=== PATIENT | female | born 1960 | race Caucasian/White ===

== ENCOUNTER 2019-07-31 19:43 | Inpatient (IN) ==
[2019-07-31] MEDS ORDERED: ONDANSETRON 4 MG/2 ML VIAL IVP ONE (20:02)
[2019-07-31] MEDS ORDERED: Sodium Chloride 0.9% 1,000 ML PRIMARY IV ONE (20:02)
[2019-07-31] MEDS ORDERED: MORPHINE SULFATE 2 MG/1 ML IVP ONE (20:02)
[2019-07-31 20:24] LABS: BASOPHILS # (AUTO) 0.04 10*3/UL; BASOPHILS % (AUTO) 0.4 % (0-1); EOSINOPHILS # (AUTO) 0.08 10*3/UL; EOSINOPHILS % (AUTO) 0.7 % (0-8); Hematocrit [HCT] 45.7 % (37.0-47.0); Hemoglobin [HGB] 16.4 g/dL (12.0-16.0); LYMPHOCYTES # (AUTO) 1.74 10*3/uL; MEAN CORPUSCULAR HGB CONC 35.9 g/dL (33-37); MEAN CORPUSCULAR VOLUME 84.2 FL (81-99); MEAN PLATELET VOLUME 8.6 FL (7.4-12.2); MONOCYTES # (AUTO) 0.77 10*3/UL (0.3-0.8); MONOCYTES % (AUTO) 7.1 % (5-15); NEUTROPHILS # (AUTO) 8.11 10*3/UL; NEUTROPHILS % (AUTO) 75.2 % (50-80); RED BLOOD COUNT 5.43 10^6/uL (4.20-5.40)
--- NOTE | 2019-07-31 20:24 | PDOC ---
General Adult HPI - General Chief Complaint: Nausea / Vomiting / Diarrhea Stated Complaint: VOMITING WITH COUGH X 1 WEEK Date Seen by Provider: 07/31/19 Time Seen by Provider: 20:00 Source: POSITIVE: Patient, Spouse Exam Limitations: POSITIVE: No limitations Nurse's Notes Reviewed & Considered: Yes - History of Present Illness Initial Comment: The patient is a 59-year-old female who presents to the emergency department with complaints of nausea, vomiting and cough. She states that she has been sick now for the past week. She reports intermittent nausea and vomiting and really has not helped much of anything down all week except for small amounts of water. She reports diminished urination. She denies any associated diarrhea and has not really had much of a bowel movement this week. She also has associated cough which is productive of whitish colored phlegm. She has had subjective fevers and general malaise. She reports mild headache. She has a history of multiple abdominal surgeries. She states she does not have a gallbladder, appendix, uterus or ovaries. She has had multiple surgeries for fistulas and adhesions. She does not currently take any prescription medications. She is allergic to iodine and contrast dye. Have you received a tetanus shot in the past 10 years?: Unknown - Patient Home Medications Home Medications: Home Medications NK 07/31/19 - Patient Allergies Allergies/Adverse Reactions: Allergies Allergy/AdvReac Type Severity Reaction Status Date / Time amoxicillin Allergy Anaphylaxis Verified 07/31/19 19:51 codeine Allergy Rash Verified 07/31/19 19:51 cyclobenzaprine Allergy Anaphylaxis Verified 07/31/19 19:51 [From Flexeril] iodine Allergy Anaphylaxis Verified 07/31/19 19:51 ketorolac [From Toradol] Allergy Rash Verified 07/31/19 19:51 Penicillins Allergy Anaphylaxis Verified 07/31/19 19:51 shellfish derived Allergy Anaphylaxis Verified 07/31/19 19:51 Past Medical History - heen HEENT History: Denies History Cardiovascular History: Denies History Respiratory History: COPD Gastrointestinal History: Irritable Bowel Syndrome, Gallbladder Disease, Other (please comment) Additional Gastrointestinal History: MULITPLE GI SURGERIES FOR ADHESIONS, FISUTULA REPAIRS AND A BOWEL RESECTION Genitourinary History: Denies History Endocrine History: Denies History Musculoskeletal History: Denies History Neurological History: Denies History Blood Disorders: Denies History Female Reproductive History: Hysterectomy Cancer History: Denies History In Past Year Been Physically Harmed or Verbally Threatened: No History of MDRO: No Tobacco Use: Current Every Day Smoker In the Past 12 Months, Have Used or Abuse Any Substance: None Previous Surgical History: Yes Type / Date of Surgery: 20+ ABDOMINAL SURGURIES - FISTULAS, RESECTION, ADHESIONS. GALLBLADDER. HERNIA. TOTAL HYSTERECTOMY Significant Family History: No pertinent family hx Past Medical History Reviewed: Reviewed - No Changes ROS - Limitations ROS Limitations: No Limitations Constitution: REPORTS: Chills, Fever (Subjective) Cardiovascular: REPORTS: Denies Cardiac Symptoms Respiratory: REPORTS: Cough Productive. DENIES: Hurts To Breathe, Shortness Of Breath Neurological: REPORTS: Headache. DENIES: Numbness, Weakness Gastrointestinal: REPORTS: Abdominal Pain, Nausea, Vomitting. DENIES: Diarrhea Endocrine: REPORTS: Fatigue Musculoskeletal: REPORTS: Muscle Aches Genitourinary: REPORTS: Denies Symptoms, Other (Diminished urination) Eyes: REPORTS: Denies Symptoms ENT: REPORTS: Denies Symptoms Skin: DENIES: Rash General Adult Exam - General Appearance General Appearance: POSITIVE: Alert, Cooperative, No Acute Distress - HEENT HEENT: POSITIVE: Head Inspection Nml, Eyes Inspection Nml, Ears Inspection Nml, Dry Mucous Membranes - Neck Neck: POSITIVE: Normal Inspection. NEGATIVE: Lymphadenopathy - Respiratory Respiratory: POSITIVE: No Respiratory Distress, Breath Sounds Normal - Cardiovascular Cardiovascular: POSITIVE: Regular Rate & Rhythm, No Murmur Peripheral Pulses: Dorsalis-pedis (R): 2+, Dorsalis-pedis (L): 2+ - Abdomen Abdomen: Soft: (All Quadrants), Normal Bowel Sounds: (All Quadrants) Additional Abdominal Details: She does have multiple abdominal scars, she has some generalized diffuse abdominal tenderness, no guarding or rebound tenderness - Skin Skin: POSITIVE: Normal Color, No Rash - Extremities Extremity: Normal ROM: (All Extremities), Normal Inspection: (All Extremities) - Neurological / Psychological Neurological: POSITIVE: Oriented X3, delineator Normal As Tested, Motor Normal, Sensation Normal General Adult Progress - Results Reviewed by me Xrays/CTs/US Reviewed by me: Yes Discussed with Radiologist: Yes Radiology Findings: CT scan of the abdomen and pelvis shows a nonobstructive, nonspecific bowel gas pattern. She did have mild patchy groundglass opacities in both lung bases per radiologist. Chest x-ray showed the similar lung findings per radiologist. Lab Results Reviewed by Me: Yes Lab Results:: Laboratory Results 07/31/19 07/31/19 07/31/19 20:10 20:10 20:10 WBC 10.79 RBC 5.43 H Hgb 16.4 H Hct 45.7 MCV 84.2 MCH 30.2 MCHC 35.9 RDW Std Deviation 41.0 RDW Coeff of Melisa 13.3 Plt Count 328 MPV 8.6 Immature Gran % (Auto) 0.5 Neut % (Auto) 75.2 Lymph % (Auto) 16.1 [place] % (Auto) 7.1 Eos % (Auto) 0.7 Baso % (Auto) 0.4 Immature Gran # (Auto) 0.05 Neut # (Auto) 8.11 Lymph # (Auto) 1.74 [place] # (Auto) 0.77 Eos # (Auto) 0.08 Baso # (Auto) 0.04 WBC Morphology Comment Normal morphology Plt Morphology Comment Normal morphology RBC Morph Comment Normal morphology Sodium 128 L Potassium 4.0 Chloride 90 L Carbon Dioxide 22 L Anion Gap 16 BUN 39 H Creatinine 1.9 H Estimated GFR 27 BUN/Creatinine Ratio 20.52 H Glucose 109 Calculated Osmolality 275.0 Lactic Acid Calcium 10.3 Magnesium 2.5 H Total Bilirubin 0.9 AST 25 ALT 29 Alkaline Phosphatase 142 H C-Reactive Protein 4.2 H Total Protein 8.6 H Albumin 4.8 Globulin 3.8 Albumin/Globulin Ratio 1.20 L Amylase Lipase Ur Collection Type Voided specimen Urine Color Yellow Urine Clarity Slightly cloudy Urine pH 5.0 Ur Specific [place] 1.010 U Specif Grav (Refrac) 1.010 Urine Protein 30 A Urine Glucose (UA) Negative Urine Ketones 15 Urine Occult Blood Negative Urine Nitrate Negative Urine Bilirubin Small Urine Urobilinogen 0.2 Ur Leukocyte Esterase Negative Ur Culture Indicated? Culture not set Urine Opiates Screen Positive H Ur Buprenorphine Negative Ur Oxycodone Screen Negative Urine Methadone Screen Negative Ur Propoxyphene Screen Negative Barbiturate Screen Negative U Tricyclic Antidepress Negative Phencyclidine Screen Negative Amphetamines Screen Negative U Methamphetamines Scrn Negative Benzodiazepines Screen Negative Cocaine Screen Negative U Marijuana (THC) Screen Positive H Serum Alcohol < 10 07/31/19 07/31/19 20:10 20:10 WBC RBC Hgb Hct MCV MCH MCHC RDW Std Deviation RDW Coeff of Melisa Plt Count MPV Immature Gran % (Auto) Neut % (Auto) Lymph % (Auto) [place] % (Auto) Eos % (Auto) Baso % (Auto) Immature Gran # (Auto) Neut # (Auto) Lymph # (Auto) [place] # (Auto) Eos # (Auto) Baso # (Auto) WBC Morphology Comment Plt Morphology Comment RBC Morph Comment Sodium Potassium Chloride Carbon Dioxide Anion Gap BUN Creatinine Estimated GFR BUN/Creatinine Ratio Glucose Calculated Osmolality Lactic Acid 1.8 Calcium Magnesium Total Bilirubin AST ALT Alkaline Phosphatase C-Reactive Protein Total Protein Albumin Globulin Albumin/Globulin Ratio Amylase 88 Lipase 239 Ur Collection Type Urine Color Urine Clarity Urine pH Ur Specific [place] U Specif Grav (Refrac) Urine Protein Urine Glucose (UA) Urine Ketones Urine Occult Blood Urine Nitrate Urine Bilirubin Urine Urobilinogen Ur Leukocyte Esterase Ur Culture Indicated? Urine Opiates Screen Ur Buprenorphine Ur Oxycodone Screen Urine Methadone Screen Ur Propoxyphene Screen Barbiturate Screen U Tricyclic Antidepress Phencyclidine Screen Amphetamines Screen U Methamphetamines Scrn Benzodiazepines Screen Cocaine Screen U Marijuana (THC) Screen Serum Alcohol CBC and BMP: 07/31/19 20:10 07/31/19 20:10 - Patient's Progress MDM / ED Course: Blood cultures and lactate were drawn with initial IV start. She was given a 1 L bolus of normal saline as well as Zofran 4 mg IV and Pepcid 20 mg IV. She did have improvement overall. Blood work reveals a normal white blood cell count with a CRP of 4. Her BUN is 39 with a creatinine of 1.9. Her sodium is 128. Liver enzymes and pancreas enzymes are unremarkable. Urinalysis shows no evidence of infection. Respiratory panel is positive for rhinovirus. Chest x- ray shows some increased haziness in the lung bases bilaterally. CT scan of the abdomen and pelvis done without IV contrast secondary to iodine and contrast allergy reveals a non-obstructive, nonspecific bowel gas pattern per radiologist. She does have diffuse groundglass opacities in both lung bases on CT per radiologist. Current findings were discussed with the patient. Her overall presentation is most likely consistent with viral syndrome. She may have an early pneumonia. In addition she does have significant dehydration with associated mild renal failure. She is mildly hyponatremic. Decision was made to admit for continued hydration and further care. Dr. Kamara has agreed to admit the patient. The patient will be treated for possible early pneumonia with Rocephin 1 g IV and Zithromax 500 mg IV. - Consult Counseled: POSITIVE: Patient, Family, RE: Lab Results, RE: Radiology Results, RE: DX Patient Care Time - Estimated PCT Patient Care Time (In Minutes): 35 Vital Signs - Recent Vital Signs Vital Signs: Vital Signs (Last 8 hours) Temp Pulse Resp BP Pulse Ox 07/31/19 19:58 96.5 F L 104 H 24 123/94 93 - VS Reviewed Vital Signs Reviewed: Yes Discharge Clinical Impression: Vomiting, Dehydration, Renal failure, Pneumonia, Rhinovirus, Chronic abdominal pain, Hyponatremia Discharge Disposition: Admit to Inpatient Condition: Fair Patient Problem(s) Reviewed: Yes Follow Up With: NONE,NONE [Primary Care Provider] - Date Decision to Admit to Inpatient: 07/31/19 Time Decision to Admit to Inpatient: 22:00
[2019-07-31] MEDS ORDERED: FAMOTIDINE 20 MG/2 ML VIAL IVP ONE (20:25)
[2019-07-31 20:26] LABS: PLATELET MORPHOLOGY COMMENT NORMAL MORPHOLOGY (NORM); RBC MORPHOLOGY COMMENT NORMAL MORPHOLOGY (NORM); WBC MORPHOLOGY COMMENT NORMAL MORPHOLOGY (NORM)
[2019-07-31 20:28] LABS: BILIRUBIN,URINE SMALL (NEG); CLARITY,URINE Slightly Cloudy (CLEAR); COLOR,URINE YELLOW (Y); GLUCOSE, URINE (UA) NEGATIVE (NEG); OCCULT BLOOD,URINE NEGATIVE (NEG); PROTEIN,URINE 30 mg/dl (NEG); UROBILINOGEN,URINE 0.2 EU/dL (0.2)
[2019-07-31 20:31] LABS: URINE SAMPLE TYPE VOIDED SPECIMEN
[2019-07-31 20:36] LABS: AMPHETAMINE SCREEN NEGATIVE (NEG); CANNABINOID SCREEN,URINE POSITIVE (NEG); COCAINE SCREEN NEGATIVE (NEG); METHADONE URINE SCREEN NEGATIVE (NEG); METHAMPHETAMINES SCREEN,URINE NEGATIVE (NEG); OPIATE SCREEN,URINE POSITIVE (NEG)
[2019-07-31 20:38] LABS: BLOOD UREA NITROGEN 39 mg/dL (7-22); BUN/CREATININE RATIO 20.52 (6-20); SERUM ALBUMIN 4.8 g/dL (3.5-4.8)
[2019-07-31] MEDS ORDERED: cefTRIAXone Inj 1 GM in Sodium Chloride 0.9% 100 ML IV ONE (21:47)
[2019-07-31] MEDS ORDERED: MORPHINE SULFATE 4 MG/1 ML IVP ONE (22:14)
--- NOTE | 2019-07-31 22:39 | PDOC ---
HPI - History of Present Illness Date of Service: 07/31/19 Time of Service: 23:00 Chief Complaint: Cough phlegm production and pain in the back of few days duration History of Present Illness: This is a 59 years old female with medical history significant for history of multiple abdominal surgeries in the past that included appendectomy, chol ecystectomy, hysterectomy and multiple hernia surgery that was complicated by fistula that needed bowel resection that was done 10 years ago who presented to the hospital with history of cough being going on for about 10 days with phlegm production described as green at times and foamy at other times, in addition she did report vomiting the last 4 days she is unable to keep food or fluid down, and last night started to have pain mainly in the middle of the back and right flank area pain is about 6 out of 10. She said she been trying cough syrup and this morning because of the pain she took one of her immediate release morphine she continued to have symptoms and because of that she came into the ER. Evaluation in the ER revealed hyponatremia, renal failure, there was mild scarring in lung bases in addition mild patchy groundglass opacities in the lower lung rooney, patient was tested positive for enterovirus. She was given antibiotics, fluid, pain medication and was admitted. By the time she came into the floor she rated her pain about 6 out of 10. She was coughing . She did report also shortness of breath. There was no diarrhea. Said she had a normal bowel movement yesterday. Past Medical History Medical History: 1. She said she was diagnosed with hypertension in the past was on medication however she could not afford it. 2. History of abdominal surgery that was complicated by development of fistula that needed bowel r esection done in [place] 10 years ago. 3. History of an animal bite when she was a child that needed surgery on the right hand including tendon transfer and skin transplant. Surgical History: 1. History of appendectomy. 2. History of cholecystectomy. 3. History of hysterectomy Family History: Reviewed an Not Pertinent Past Social History: She smokes half a pack a day for more than 40 years however she said the last 10 days she is not been smoking, doesn't drink. Lives in [place] with her . She said a friend gave her a candy and apparently tested positive for marijuana. Tobacco Use: Current Every Day Smoker In the Past 12 Months, Have Used or Abuse Any of the Following Substance: None Medication / Allergies Home Medications: Home Medications Medication Instructions Recorded Confirmed NK 07/31/19 07/31/19 Allergies/Adverse Reactions: Allergies Allergy/AdvReac Type Severity Reaction Status Date / Time amoxicillin Allergy Anaphylaxis Verified 07/31/19 19:51 codeine Allergy Rash Verified 07/31/19 19:51 cyclobenzaprine Allergy Anaphylaxis Verified 07/31/19 19:51 [From Flexeril] iodine Allergy Anaphylaxis Verified 07/31/19 19:51 ketorolac [From Toradol] Allergy Rash Verified 07/31/19 19:51 Penicillins Allergy Anaphylaxis Verified 07/31/19 19:51 shellfish derived Allergy Anaphylaxis Verified 07/31/19 19:51 hand sanatizer Allergy Rash Uncoded 07/31/19 23:05 Review of Systems - Review of Systems All Systems: Reviewed & No Additional Complaints Except as Stated Exam - Vitals Vital Signs: Vital Signs Temperature 96.5 F Temperature Source Temporal Artery Scan Pulse Rate [Pulse Oximeter] 104 Respiratory Rate 24 Blood Pressure [Left Arm] 123/94 Pulse Ox 93 Oxygen Delivery Method Room Air - General Additional General Exam Details: Patient was coughing during the interview - Head Head Exam: Normal Inspection - Eye Eye Exam: POSITIVE: Normal Appearance - ENT ENT Exam: POSITIVE: Normal Exam - Neck Neck Exam: Normal Inspection - Respiratory Additional Respiratory Exam Details: Harsh breath sounds but otherwise clear - Cardiovascular Cardiovascular Exam: POSITIVE: RRR - GI/Abdominal GI/Abdominal Exam: POSITIVE: Normal Bowel Sounds, Non Distended, Soft, No Organomegaly Additional GI/Abdominal Exam Details: Multiple scars noted in the abdomen. There is minimal tenderness in the epigastrium. Abdomen is soft. - Rectal Rectal Exam: POSITIVE: Deferred - External Exam: POSITIVE: Deferred Exam: POSITIVE: Deferred - Extremities Additional Extremities Exam Details: Scars of previous operations noted on the right dorsum of the hand. - Back Back Exam: POSITIVE: Normal Inspection Additional Back Exam Details: Some tenderness in the middle of the back noted - Neurological Neurological Exam: POSITIVE: Alert, Oriented x 3, CN II-XII Intact, No Facial Droop, Speech Intact / Clear, Moves All Extremities Equally - Psychiatric Psychiatric Exam: POSITIVE: Normal Affect - Integumentary Integumentary Exam: POSITIVE: Normal Color Results - Labs CBC and BMP: 07/31/19 20:10 07/31/19 20:10 - Imaging Status: Report Reviewed by Me (CT of the abdomen showed previous bowel surgery, nonspecific, nonobstructed bowel gas pattern, patchy bilateral lung does opacities in the lung bases. 2 cm left renal cysts indeterminant foci in both kidneys could be dense/complex cyst or solid lesions largest is in the left kidney and measured approximately 2.[address] of the chest showed mild scarring in the lung bases mild patchy groundglass opacities in the long lung rooney) Assessment and Plan - Patient Problems (1) Hyponatremia Current Visit: Yes Status: Acute Comment: Probably secondary to dehydration will continue with IV fluid repeat her labs in the morning. Code(s): E87.1 - Hypo-osmolality and hyponatremia (2) Renal failure Current Visit: Yes Status: Acute Comment: Unclear if this is acute or chronic but will treat as acute we'll give her IV fluid and repeat in the morning. There is an indeterminant dense/complex cyst in the left kidney will order ultrasound of the kidneys tomorrow. Code(s): N19 - Unspecified kidney failure (3) Pneumonia Current Visit: Yes Status: Acute Comment: sHe was started on antibiotics will continue with IV antibiotics. Code(s): J18.9 - Pneumonia, unspecified organism (4) Vomiting Current Visit: Yes Status: Acute Comment: We'll treat symptomatically. We'll also put on Protonix. Code(s): R11.10 - Vomiting, unspecified
[2019-07-31] MEDS ORDERED: LIDOCAINE W/ SODIUM BICARB 0.5 ML SYR SUBD PRN (23:21)
[2019-07-31] MEDS ORDERED: ACETAMINOPHEN 325 MG TABLET PO PRN (23:42)
[2019-08-01] MEDS: Sodium Chloride 0.9% 1,000 ML PRIMARY IV SCH ×3 (00:25→19:39)
[2019-08-01] MEDS: BENZONATATE 100 MG CAPSULE PO PRN ×2 (00:25→08:05)
[2019-08-01] MEDS: MORPHINE SULFATE 2 MG/1 ML IVP PRN ×6 (00:26→22:07)
[2019-08-01 04:36] LABS: BASOPHILS # (AUTO) 0.09 10*3/UL; BASOPHILS % (AUTO) 0.9 % (0-1); EOSINOPHILS # (AUTO) 0.18 10*3/UL; EOSINOPHILS % (AUTO) 1.8 % (0-8); Hematocrit [HCT] 38.2 % (37.0-47.0); Hemoglobin [HGB] 13.4 g/dL (12.0-16.0); LYMPHOCYTES # (AUTO) 2.66 10*3/uL; MEAN CORPUSCULAR HGB CONC 35.1 g/dL (33-37); MEAN CORPUSCULAR VOLUME 85.3 FL (81-99); MEAN PLATELET VOLUME 8.9 FL (7.4-12.2); MONOCYTES # (AUTO) 0.82 10*3/UL (0.3-0.8); MONOCYTES % (AUTO) 8.2 % (5-15); NEUTROPHILS # (AUTO) 6.17 10*3/UL; NEUTROPHILS % (AUTO) 62.1 % (50-80); RED BLOOD COUNT 4.48 10^6/uL (4.20-5.40)
[2019-08-01 04:40] LABS: PLATELET MORPHOLOGY COMMENT NORMAL MORPHOLOGY (NORM); RBC MORPHOLOGY COMMENT NORMAL MORPHOLOGY (NORM); WBC MORPHOLOGY COMMENT NORMAL MORPHOLOGY (NORM)
[2019-08-01 04:51] LABS: BUN/CREATININE RATIO 23.07 (6-20); SERUM ALBUMIN 3.8 g/dL (3.5-4.8)
[2019-08-01] MEDS: ONDANSETRON 4 MG/2 ML VIAL IVP PRN (06:54)
[2019-08-01] MEDS: ASCORBIC ACID Chewable 500 MG TABLET PO SCH (08:04)
[2019-08-01] MEDS: PANTOPRAZOLE IV 40 MG VIAL IVP SCH (08:06)
[2019-08-01] MEDS ORDERED: POTASSIUM CHLORIDE 20 MEQ TAB PO ONE (09:32)
[2019-08-01] MEDS ORDERED: TIOTROPIUM BROMIDE 18 MCG CAPSULE INH ONE (11:08)
[2019-08-01] MEDS ORDERED: ALBUTEROL SULFATE 2.5 MG/3 ML NEB PRN (11:10)
--- NOTE | 2019-08-01 11:16 | PDOC(PROG) ---
Date of Service: 08/01/19 Time of Service: 11:11 Interval History: Patient reports continued right lower back pain. Describes it as sharp and burning. Has been unrelenting since the . She states it coincided with the onset of her cough. She has had kidney stones in the past, but states this feels much different. She wondered about having COPD. She has smoked, is down to half a pack per day and has not smoked this last week. Wheezing on exam today. Reports she is terribly allergic to iodine. She states she cannot even tolerate salt. Admits to an marijuana edible gummy Bear given to her by a friend and she reports taking a pain medication from her 's pain pills for her back pain. Objective : Data - Labs CBC and BMP: 08/01/19 04:00 08/01/19 04:00 - Impression Impressions: Ultrasound at this time is pending on the kidneys. Cysts noted on left kidney, not on right kidney where pain is. I am going to order bilateral lower extremity ultrasounds to look for DVT, VQ scan due to iodine contrast allergy and renal failure. Patient was able to give me additional history that she took anti-inflammatories, 600 mg 3 times a day for the last couple of weeks trying to control this pain. Creatinine is better, but I'm still concerned about the thought of doing a CT scan with contrast due to this severe iodine allergy. I will also order a noncontrast CT scan of the chest to look for potential mass in right lower lobe. Objective : Exam - General General Appearance: No Acute Distress, Cooperative Additional General Exam Details: Vital Signs - Last Taken Temperature 98.4 F 08/01/19 07:49 Pulse Rate 92 08/01/19 07:49 Respiratory Rate 16 08/01/19 07:49 Blood Pressure 128/80 08/01/19 07:49 Pulse Ox 93 08/01/19 07:49 - Eye Eye Exam: No Scleral Icterus - ENT ENT Exam: Mucous Membranes Moist - Neck Neck Exam: JVP is not Raised - Respiratory Respiratory Exam: Breathing Non Labored, Wheezes, Coarse Breath Sounds - Cardiovascular Cardiovascular Exam: RRR, No Murmur, No Clicks, No Gallops, No Rubs, No JVD - GI/Abdominal GI/Abdominal Exam: Normal Bowel Sounds, Non Tender, Non Distended, Soft - Extremities Extremities Exam: No Clubbing Present, No Edema Present, No Cyanosis Present - Back Back Exam: No CVA Tenderness (On the right side.) - Neurological Neurological Exam: Alert, Oriented x 3, No Facial Droop, Speech Intact / Clear, Moves All Extremities Equally Assessment and Plan - Patient Problems (1) Renal failure Current Visit: Yes Status: Acute Code(s): N19 - Unspecified kidney failure Qualifiers: Renal failure chronicity: acute Acute renal failure type: unspecified Qualified Code(s): N17.9 - Acute kidney failure, unspecified (2) Right flank pain Current Visit: Yes Status: Acute Code(s): R10.9 - Unspecified abdominal pain (3) COPD exacerbation Current Visit: Yes Status: Acute Code(s): J44.1 - Chronic obstructive pulmonary disease with (acute) exacerbation (4) Hyponatremia Current Visit: Yes Status: Acute Code(s): E87.1 - Hypo-osmolality and hyp onatremia (5) Renal cyst Current Visit: Yes Status: Acute Code(s): N28.1 - Cyst of kidney, acquired (6) Tobacco abuse Current Visit: Yes Status: Acute Code(s): Z72.0 - Tobacco use - Assessment / Plan Additional Assessment/Plan Details: The right flank pain has multiple differentials. At this point, given iodine allergy and increased creatinine on admission (I think this is related to anti- inflammatory use, probable dehydration as well), I will get bilateral lower extremity ultrasounds and also check a VQ scan of the lungs. We'll treat with Lovenox for now until we see the VQ scan results. Urinary tract infection has been shown to be negative with UA noted. I discussed the drug screen with the patient and she admitted to using pain medication and a marijuana edible given to her by a friend. History of cough, onset of pain with cough, suggest possible rib fracture and/or muscle strain in the setting of cough. I think she may have an underlying COPD exacerbation. She is wheezing on exam. History of smoking states she quit this last week and is continuingly trying to quit. Will get noncontrast CT scan again, due to iodine allergy. Add Spiriva. Add prednisone. Labs in a.m. Replace potassium. Although highly unlikely to be cardiac presentation, get troponin and EKG.
--- NOTE | 2019-08-01 11:33 | EKG ---
[address] [address] Test Date: 2019-08-01 Pat Name: CHRISTIAN LONGORIA Department: MED/SURG Room: 315 Gender: Female Patient Experience Coordinator: TERRY : 1960 Requested By: NEERAJ SCHULTZ Order Number: [id number] Reading MD: Brendon Mcdaniel Measurements Intervals [place] Rate: 86 P: 60 ID: [id number] QRS: 16 QRSD: 84 T: 56 QT: 353 QTc: 424 Interpretive Statements SINUS RHYTHM No previous ECG available for comparison Electronically Signed On 08-01-2019 12:16:58 MDT by Brendon Mcdaniel [id number]
--- NOTE | 2019-08-01 12:36 | DI ---
US Veins, UE/LE Bilat 08/01/2019 11:07 AM History: [facility] [place] ^leg pain, question DVT Comparison: None. Procedure: Bilateral lower extremity Doppler ultrasound. Findings: There is normal flow, compressibility, and respiratory variation from the level of the comm on femoral vein to the popliteal vein bilaterally. There is normal augmentation of flow. Additionally , the deep veins below the knee that could be imaged were evaluated without evidence of thrombosis, t shelli sensitivity is much lower in the evaluation of vessels below the knee. Impression: No sonographic evidence of deep vein thrombosis.
[2019-08-01] MEDS: predniSONE Tab 20 MG TAB PO SCH (12:42)
[2019-08-01 14:29] LABS: BUN/CREATININE RATIO 22.72 (6-20)
--- NOTE | 2019-08-01 14:31 | DI ---
US Retroperitoneal Limited 08/01/2019 7:00 AM [place] [facility] [place]renal failure, solid/cystic lesion on left kidney Comparison: CT abdomen/pelvis 07/31/2019. Technique: Routine transabdominal sung scale and color Doppler ultrasound of the kidneys and bladder was performed. Findings: The right kidney measures 11.7 cm in length and the left kidney measures 11.0 cm in length . Both kidneys demonstrate normal cortical thickness and echogenicity. The bilateral kidneys show no evidence of hydronephrosis or echogenic shadowing calculi. There is a 9 x 7 x 9 mm simple cyst in the upper pole of the right kidney. There is a 1.2 x 0.8 x 1.5 cm simple cyst in the interpolar region o f the right kidney. There is a 1.8 x 2.0 x 1.7 cm simple cyst in the upper pole of the left kidney. T here is a 1.7 x 1.5 x 1.9 cm simple cyst in the lower pole of the left kidney. Bilateral ureteral jet s are noted. The bladder is unremarkable in appearance. Impression: 1. Multiple bilateral renal cysts.
--- NOTE | 2019-08-01 14:31 | DI ---
XR CXR 1VW 07/31/2019 8:50 PM HISTORY: [facility] [place]cough Comparison: None. Findings: A single portable frontal view of the chest is submitted. Images demonstrate patchy bibasilar opacities. There is no large pneumothorax or pleural effusion. Th e cardiomediastinal silhouette is at the upper limits of normal for technique with mildly increased p ulmonary vasculature. Atheromatous calcifications are noted in the arch of the tortuous thoracic aort a. The osseous structures are grossly unremarkable. Impression: 1. Patchy bibasilar opacities may represent atelectasis versus early airspace disease in the correct clinical setting. Repeat imaging is recommended 6 weeks following completion of therapy in order to e nsure resolution. 2. Borderline cardiomegaly with mildly increased pulmonary vasculature may represent technique versus early pulmonary edema in the setting of heart failure.
--- NOTE | 2019-08-01 14:32 | DI ---
CT Chest WO Contrast 08/01/2019 11:30 AM History: [facility] ^back pain, question rib fracture, ? PNA, right frankie Comparison: None. Technique: Noncontrast CT images through the chest were obtained for review in the axial, sagittal, a nd coronal planes. Findings: Evaluation of the lungs demonstrates patchy areas of groundglass attenuation in the mid and lower lungs with no dense consolidation, pneumothorax, or pleural effusion. There is a 6 mm pulmonar y nodule in the right middle lobe on series 2 image 53. There is diffuse bronchial wall thickening without endobronchial lesion. There is no mediastinal or h ilar lymphadenopathy. The ascending thoracic aorta is ectatic. The pulmonary vessels demonstrate norm al course and caliber. There are atheromatous aortic and coronary artery calcifications. Heart size i s within normal limits with no pericardial effusion. The thyroid exhibits normal CT morphology. Osseous structures are unremarkable for age with multilevel degenerative endplate changes. There is n o acute displaced rib fracture. Impression: 1. There are groundglass opacities in the mid and lower lungs. This is a nonspecific finding with a b road differential that includes atypical infection, hypersensitivity pneumonitis, respiratory bronchi olitis interstitial lung disease, and pulmonary edema in the acute setting. Clinical correlation is r ecommended with followup 6 weeks following completion of therapy in order to to ensure resolution. 2. There is diffuse bronchial wall thickening without endobronchial lesion. This is a non-specific fi nding that is most commonly seen in the setting of acute or chronic bronchitis, as well as reactive a irways disease. 3. There is a 6 mm pulmonary nodule in the right middle lobe. Fleischner Society 2017 guidelines for management of incidentally detected pulmonary nodules is as follows: Single solid lung nodule less than 6 mm: Low risk: No routine follow-up. High risk: Optional CT at 12 months.
--- NOTE | 2019-08-01 16:45 | DI ---
VENTILATION AND PERFUSION LUNG SCAN, 08/01/2019 3:30 PM: Clinical History: Right lower thoracic back pain. Previous Exam: None at this facility. Related Exam(s): Comparison is made with the recent noncontrast CT chest scan performed today. Technique: The patient was ventilated with Tc-99 DTPA aerosol, and 8 views were performed. The patien t was then injected with 6 mCi of Tc-99 MAA IV, and the same 8 views were performed. Findings: On all images, perfusion is substantially better than ventilation, with focal "hot spots" i n both lower lobes. These findings indicate there is underlying chronic airway disease, and this appe arance is in agreement with the CT chest scan findings of chronic bronchial thickening. There are no lobar or segmental ventilation/perfusion mismatches to indicate pulmonary embolism. Subsegmental defe cts are scattered throughout both lungs but again, the perfusion is actually better than the ventilat ion scans and this is opposite of the classic finding for pulmonary embolism and is most consistent w ith chronic airway disease. Overall, the scans are considered negative for pulmonary embolism. Readin. No lobar or segmental ventilation/perfusion mismatches present to indicate pulmonary embolism. Th e scans are considered negative for PE. 2. There are subsegmental ventilation and perfusion defects but in every case, the ventilatory defec t is greater than the perfusion defect and this pattern along with "hot spots" in the lower lobes is consistent with chronic airway disease. The CT scan demonstrates evidence of chronic bronchitis. Comment: There are extensive coronary artery calcifications visualized on the CT chest scan throughou t the length of the LAD in the proximal half of the right coronary artery and the left circumflex art zhao. There is also pulmonary arterial hypertension.
[2019-08-01] MEDS ORDERED: cefTRIAXone Inj 2 GM in Sodium Chloride 0.9% 100 ML IV SCH (21:00)
[2019-08-02] MEDS: MORPHINE SULFATE 2 MG/1 ML IVP PRN (02:45)
[2019-08-02 03:56] VITALS: RESP 18; TEMP 98.5
[2019-08-02] MEDS: ONDANSETRON 4 MG/2 ML VIAL IVP PRN (04:01)
[2019-08-02 04:41] LABS: BLOOD UREA NITROGEN 19 mg/dL (7-22); BUN/CREATININE RATIO 23.75 (6-20)
[2019-08-02 04:43] LABS: BASOPHILS # (AUTO) 0.05 10*3/UL; BASOPHILS % (AUTO) 0.5 % (0-1); EOSINOPHILS # (AUTO) 0.13 10*3/UL; EOSINOPHILS % (AUTO) 1.2 % (0-8); Hematocrit [HCT] 37.2 % (37.0-47.0); Hemoglobin [HGB] 12.6 g/dL (12.0-16.0); LYMPHOCYTES # (AUTO) 1.78 10*3/uL; MEAN CORPUSCULAR HGB CONC 33.9 g/dL (33-37); MEAN CORPUSCULAR VOLUME 92 FL (81-99); MEAN PLATELET VOLUME 6.6 FL (7.4-12.2); MONOCYTES # (AUTO) 0.63 10*3/UL (0.3-0.8); NEUTROPHILS # (AUTO) 7.96 10*3/UL; NEUTROPHILS % (AUTO) 75.4 % (50-80); PLATELET MORPHOLOGY COMMENT NORMAL MORPHOLOGY (NORM); RBC MORPHOLOGY COMMENT NORMAL MORPHOLOGY (NORM); RED BLOOD COUNT 4.06 10^6/uL (4.20-5.40); WBC MORPHOLOGY COMMENT NORMAL MORPHOLOGY (NORM)
[2019-08-02] MEDS ORDERED: TIOTROPIUM BROMIDE 18 MCG CAPSULE INH SCH (07:00)
[2019-08-02] MEDS: oxyCODONE IR Tab 5 MG TAB PO PRN ×2 (07:23→11:27)
[2019-08-02 07:33] VITALS: BP 162/93
[2019-08-02] MEDS: ASCORBIC ACID Chewable 500 MG TABLET PO SCH (08:00)
[2019-08-02] MEDS ORDERED: ENOXAPARIN SODIUM 30 MG/0.3 ML SYRINGE SUBCUT SCH (09:00)
[2019-08-02] MEDS: PANTOPRAZOLE IV 40 MG VIAL IVP SCH (09:50)
[2019-08-02] MEDS: predniSONE Tab 20 MG TAB PO SCH (09:50)
--- NOTE | 2019-08-02 11:25 | DCSUMMARY ---
Hospitalization Summary Admit Date: 07/31/2019 Discharge Date: 08/02/19 Primary Diagnosis:: COPD exacerbation Hospital Course: Very pleasant 59-year-old female that came in with cough and shortness of breath. She had lower right-sided back pain that was unclear in etiology. Overall, I think the back pain was related to cough in the setting of what appears to be COPD exacerbation. The patient was placed on Zithromax, Rocephin, and eventually steroids as well. We placed her on Spiriva and that really seemed to help with shortness of breath and wheezing and cough. The patient states that she quit smoking a week ago and has been working very hard on cutting back on her smoking. I recommended she not smoke at all anymore. In terms of her workup, we did a CT scan of the chest, noncontrast due to his severe iodine allergy, and found a right sided lung nodule there were no rib fractures. The nodule is small 6 mm and we will try to arrange follow-up with the tunnel mucker to look at this. I did recommend that she have a CT scan in the next 12 months. We will arrange primary care physician follow-up as well. I thought this could've been a blood clot, and we did a VQ scan which was negative. We also did ultrasounds of the lower extremity that were negative. She could not do a CTA due to contrast allergy. She did have a positive drug screen for opiates and marijuana and explained to me that she had tried a pain pill from her for the back pain and also tried an edible with marijuana and it for the back pain as well. We did an EKG and troponin which were negative for any acute coronary events. The patient improved yesterday and today she states that she is no longer feeling short of breath. Her cough is improved significantly. She is not wheezing on exam today. She has no chest pain and does not have any nausea or vomiting and she would like to go home. Assessment and Plan: 1. As per discharge assessments noted 2. Disposition: Patient is discharged home. 3. Condition on discharge, stable and improved. Prognosis would diminish if she continued to smoke and I discussed this with the patient and her and they are aware of this. 4. Diet: regular diet 5. Activities: resume normal activities but do not smoke 6. Follow-Up: 1. We will arrange the patient to see Dr. Sawyer 2. The patient should visit with a tunnel mucker and we will try to arrange an appointment on Sunday. This is to recheck the nodule. I put in the patient's instructions that she should have repeat CT scan within 12 months 7. Medications at the Time of Discharge: Home Medications Medication Instructions Recorded Confirmed Azithromycin [Zithromax] 500 mg PO DAILY #3 tab 08/02/19 Benzonatate [Tessalon Perle] 100 mg PO TID PRN #90 cap 08/02/19 Tiotropium Inhalation Cap 18 mcg INHALATION RTDAILY #1 08/02/19 [Spiriva Inhalation Cap] inhaler predniSONE Tab [Deltasone Tab] 40 mg PO DAILY #8 tab 08/02/19 8. Time, care, counseling and coordination of care for this discharge is less than 30 minutes. This report was transcribed using MOLOME voice recognition. Despite editing, there may be grammatical and/or typographical errors in this multimedia programmer report due to the limitations inherent with voice activated and speech recognition software. Exam - Vitals Vital Signs: Vital Signs Temperature 98.5 F Temperature Source Temporal Artery Scan Pulse Rate [Pulse Oximeter] 66 Pulse Rate [left hand] 66 Pulse Rate 91 Respiratory Rate 18 Blood Pressure [Right Arm] 162/93 Blood Pressure [Left Arm] 151/92 Blood Pressure 116/84 Pulse Ox [left hand] 91 Pulse Ox 94 Oxygen Delivery Method [left Room Air hand] Oxygen Delivery Method Room Air Weight 150 lb 6.4 oz - General General Appearance: No Acute Distress, Cooperative - Head Head Exam: Normal Inspection, Normocephalic, Atraumatic - Eye Eye Exam: POSITIVE: No Scleral Icterus - ENT ENT Exam: POSITIVE: Mucous Membranes Moist - Neck Neck Exam: JVP is not Raised - Respiratory Respiratory Exam: POSITIVE: Clear to Auscultation - Bilaterally, Breathing Non Labored Additional Respiratory Exam Details: No wheezing today - Cardiovascular Cardiovascular Exam: POSITIVE: RRR, No Murmur, No Clicks, No Gallops, No Rubs, No JVD - GI/Abdominal GI/Abdominal Exam: POSITIVE: Normal Bowel Sounds, Non Tender, Non Distended, Soft - Extremities Extremities Exam: POSITIVE: No Edema Present, No Cyanosis Present - Neurological Neurological Exam: POSITIVE: Alert, Oriented x 3, Normal Gait, No Facial Droop, Speech Intact / Clear, Moves All Extremities Equally Data Procedures: 07/31/19 08/01/19 08/01/19 20:10 04:00 04:00 WBC Hgb Hct Plt Count Sodium Potassium Chloride Carbon Dioxide Anion Gap BUN Creatinine Estimated GFR BUN/Creatinine Ratio Glucose Calculated Osmolality Lactic Acid 0.8 Calcium Total Bilirubin 0.7 AST 23 ALT 36 Alkaline Phosphatase 111 Troponin I Total Protein 6.6 Albumin 3.8 Globulin 2.9 Albumin/Globulin Ratio 1.30 Urine Opiates Screen Positive H U Marijuana (THC) Screen Positive H 08/01/19 08/02/19 08/02/19 11:19 04:00 04:00 WBC 10.6 Hgb 12.6 Hct 37.2 Plt Count 265 Sodium 129 L Potassium 4.4 Chloride 99 Carbon Dioxide 22 L Anion Gap 8 BUN 19 Creatinine 0.8 Estimated GFR > 60 BUN/Creatinine Ratio 23.75 H Glucose 117 H Calculated Osmolality 270.0 Lactic Acid Calcium 9.3 Total Bilirubin AST ALT Alkaline Phosphatase Troponin I < 0.012 Total Protein Albumin Globulin Albumin/Globulin Ratio Urine Opiates Screen U Marijuana (THC) Screen Patient Problems - Patient Problem List (1) COPD exacerbation Current Visit: Yes Status: Acute Code(s): J44.1 - Chronic obstructive pulmonary disease with (acute) exacerbation Category: Medical (2) Right flank pain Current Visit: Yes Status: Resolved Code(s): R10.9 - Unspecified abdominal pain Category: Medical (3) Renal failure Current Visit: Yes Status: Resolved Code(s): N19 - Unspecified kidney failure Qualifiers: Renal failure chronicity: acute Acute renal failure type: unspecified Qualified Code(s): N17.9 - Acute kidney failure, unspecified Category: Medical (4) Hyponatremia Current Visit: Yes Status: Acute Comment: This improved during the hospital stay is 129 and the patient is not symptomatic. Code(s): E87.1 - Hypo-o smolality and hyponatremia Category: Medical (5) Renal cyst Current Visit: Yes Status: Acute Code(s): N28.1 - Cyst of kidney, acquired Category: Medical (6) Tobacco abuse Current Visit: Yes Status: Acute Code(s): Z72.0 - Tobacco use Category: Medical
[2019-08-02] MEDS: BENZONATATE 100 MG CAPSULE PO PRN (12:25)
[2019-08-02 12:31] VITALS: O2SAT 92
== END 2019-08-02 12:45 | disposition home or self-care (01) | DRG 190 ==
LOC: ER 19:43 → MED/SURG 22:30
PROVIDERS: ADMIT Internal Medicine; ATTEND Internal Medicine